=== PATIENT | male | born 1990 | race Caucasian/White ===

== ENCOUNTER 2016-11-23 07:42 | Day surgery (SDC) | payer OTHER ==
[2016-11-22 15:36] VITALS: BMI 31.6
[2016-11-23] MEDS ORDERED: LIDOCAINE 1%-EPI 1:100,000 30 ML MDV IJ ONE (09:48)
[2016-11-23] MEDS ORDERED: OXYMETAZOLINE 0.05% NASAL SOLUTION 15 ML BOTTLE NS ONE ×2 (09:48→11:00)
[2016-11-23] MEDS ORDERED: PROPOFOL 20 ML ONE (10:07)
[2016-11-23] MEDS ORDERED: SUCCINYLCHOLINE CHLORIDE 200 MG/10 ML VIAL ONE (10:07)
[2016-11-23] MEDS ORDERED: MIDAZOLAM HCL 2 MG/2 ML SINGLE DOSE VIAL ONE (10:08)
[2016-11-23] MEDS ORDERED: HYDROmorphone HCL/PF 1 MG/ML VIAL (FOR PYXIS CHARGING ONLY) ONE ×2 (10:56→11:40)
[2016-11-23] MEDS ORDERED: ceFAZolin SODIUM 1 GM VIAL ONE (10:57)
[2016-11-23] MEDS ORDERED: LIDOCAINE 1%/EPI 1:100000 (20 ML MULTI DOSE VIAL) INF ONE ×3 (11:00)
[2016-11-23] MEDS ORDERED: DEXAMETHASONE SOD PHOSPHATE 4 MG/1 ML VIAL ONE (11:01)
[2016-11-23] MEDS ORDERED: ONDANSETRON 4 MG/2 ML VIAL ONE ×2 (11:01→13:26)
[2016-11-23] MEDS ORDERED: ePHEDrine SULFATE 50 MG/1 ML AMPULE ONE (12:15)
[2016-11-23] MEDS ORDERED: ONDANSETRON 4 MG/2 ML VIAL IVPB PRN (14:12)
[2016-11-23] MEDS ORDERED: oxyCODONE HCL 5 MG TABLET PO PRN ×2 (14:12)
[2016-11-23] MEDS ORDERED: LACTATED RINGERS SOLUTION 1,000 ML IV SCH (14:15)
[2016-11-23] MEDS ORDERED: ACETAMINOPHEN 325 MG TABLET (FP) PO PRN (14:17)
--- NOTE | 2016-11-23 14:17 | OP ---
Operative Note - Note: Operative Date: 11/23/16 Pre-Operative Diagnosis: nasal septal deformity Operation: septoplasty, rhinoplsty Findings: deviated septum Surgeon: Surya Tobias Anesthesia: General Specimens Removed: nasal septal cartilage Operative Report Dictated: Yes
[2016-11-23 15:34] VITALS: TEMP 97.9
[2016-11-23 15:58] VITALS: BP 141/82; PULSE 72
--- NOTE | 2016-11-25 14:06 | OP ---
DATE OF OPERATION: 11/23/2016 TITLE OF PROCEDURE: Submucosal resection of nasal septum with open rhinoplasty. ATTENDING SURGEON: Surya Tobias MD ANESTHESIA: General endotracheal anesthesia. The patient was marked in the holding area, awake and aware of incisions and resulting scars. Risks, benefits and alternatives to rhinoplasty and septoplasty are discussed. He understands and agrees to proceed. The procedure as follows. The patient is brought to the operating room and placed in a supine position. He is given 2 g of Ancef preoperatively. The nose is prepped for surgery, after a timeout is called. The patient, procedure, side and site are verified. Sequential compression stockings are applied. The columella and dorsum of the nose are injected with a total of 10 mL of 1% lidocaine with 1:100,000 epinephrine. The bilateral nostrils are packed with Afrin-soaked cottonoids. The nose is then prepped with Betadine. The eyes are protected with Lacri-Lube and tape. A throat packing is placed. This is done, all after general anesthesia is induced. The patient is then prepped and draped in the standard surgical fashion. The transcolumellar incision is made and connected to bilateral rim incisions. The dorsum of the nose is then dissected directly on the lower lateral cartilages, dissecting along the lines of the dorsum to expose the dorsum to the radix. At this point, the nasal septum is then injected with a total of 6 mL of 1% lidocaine with 1:100,000 epinephrine on either side of the septum. The anterior septal angle is exposed and the septal perichondrium is from the cartilage. A Mcdermott elevator is used to raise mucoperichondrial flaps on either side of the septum, exposing the entirety of the septum. A dorsal takedown of the septum of roughly 2 mm is then performed using a Berny swivel knife. The deviated portion of the septum is resected and preserved for use as a graft. Deviated elements of perpendicular plate and vomer are also removed with a Shahzad clamp. Attention is then directed toward the nasal dorsum where rasping with a 3 and 4 Fomon rasp are used to take down the dorsal height until it is even with the septum. Bilateral medial and lateral osteotomies are then performed with a straight single-guarded osteotome. The lateral osteotomies are performed through piriform aperture incisions which are also injected with 1% lidocaine and 1:100,000 epinephrine. The periosteal tunnels, both on the superficial and deep side of the piriform aperture, are injected. Total injected lidocaine throughout the entirety of the case is 20 mL. Bilateral infractures are then made, narrowing the nasal dorsum. Additional fine rasping is then performed on both the dorsal bone and cartilage, until a smooth, even contour of the dorsum is achieved. Attention is then directed toward the nasal tip where bilateral cephalic trims are performed leaving 1-cm rim strips. A segment of the cartilaginous septum is then used as a columellar strut which is placed into a pocket between the bilateral medial genu. The medial genu are then secured to one another over the cartilaginous strut with a buried mattressed 4-0 nylon suture. The dome stitches are then applied with two separate buried interdomal 4-0 nylon suture with knots buried, until the appropriate, shape, projection and definition of the tip is achieved. The wound is irrigated. Hemostasis is achieved. The skin is then closed along the transcolumellar incision with a series of interrupted 6-0 nylon suture. The rimming incisions are closed with a series of interrupted 5-0 chromic gut suture. Nasal septal splints are applied and secured with a single mattressed 4-0 Prolene suture. A moustache dressing is applied. A Kristofer splint is externally applied. The tip skin and tissues appear pink and viable. The patient is awoken from anesthesia, after the throat packing is removed, and transferred to recovery without complication. Mohini HARO/[id number]
--- NOTE | 2016-11-27 15:32 | PATH ---
Surgical Pathology Report Patient Name: PAM COE Med. Rec. #: [id number] /Age/Gender: 1990 (Age: 26) / M Account: [id number] Location: [facility] AMBULATORY Taken: 11/23/2016 Received: 11/23/2016 Reported: 11/27/2016 Physicians: Surya Tobias Specimen(s) Received NASAL SEPTUM CARTILAGE Clinical History Deviated nasal septum Final Diagnosis NASAL SEPTAL CARTILAGE, SEPTOPLASTY AND RHINOPLASTY: PORTIONS OF CARTILAGE AND BONE, CONSISTENT WITH NASAL SEPTUM. Electronically Signed Rosa Maria Rea M.D. Gross Description Received in formalin labeled "nasal septal cartilage," is a 1.4 x 1.3 x 0.2 cm aggregate of flaherty, irregular portions of cartilage and possible bone. The specimen is entirely submitted in one cassette, following decalcification. /11/24/201611/24/2016
== END 2016-11-23 16:35 | disposition home or self-care (01) ==
LOC: FASU 07:42
PROVIDERS: ATTEND Plastic Surgery
PROC: 09TL0ZZ Resection of Nasal Turbinate, Open Approach (ICD-10-PCS; 2016-11-23)
PROC: 090K0ZZ Alteration of Nasal Mucosa and Soft Tissue, Open Approach (ICD-10-PCS; principal; 2016-11-23 11:15)
PROC: 09BM0ZZ Excision of Nasal Septum, Open Approach (ICD-10-PCS; 2016-11-23 11:15)
DX: J34.2 Deviated nasal septum (principal)
CPT/HCPCS: 88302-TC; 94760